=== PATIENT | male | born 1980 | race Caucasian/White ===

== ENCOUNTER 2020-09-29 19:32 | Emergency (ER) | payer OTHER ==
[~2020-09-29] VITALS: Ht 180.3 cm; Wt 117.0 kg
[2020-09-29 19:40] VITALS: BP 157/107
--- NOTE | 2020-09-29 19:43 | NUR ---
TO LOBBY A/W BED AMBULATORY
--- NOTE | 2020-09-29 20:03 | NUR ---
SHAGUFTA BROWN EVALUTING PATIENT
[2020-09-29] MEDS ORDERED: IBUP-2213 PO (20:10)
[2020-09-29] MEDS ORDERED: CEPH500C16 PO (20:10)
--- NOTE | 2020-09-29 22:25 | NUR ---
Patient discharged with v/s stable. Written and verbal after care instructions given and explained. Patient alert, oriented and verbalized understanding of instructions. Ambulatory with steady gait. All questions addressed prior to discharge. ID band removed. Patient advised to follow up with PMD. Rx of KEFLEX AND MOTRIN given. Patient educated on indication of medication including possible reaction and side effects. Opportunity to ask questions provided and answered.
== END 2020-09-29 22:25 | disposition home or self-care (01) ==
LOC: MED 19:32
DX: L60.0 Ingrowing nail (principal); R03.0 Elevated blood-pressure reading, without diagnosis of hypertension; Z79.899 Other long term (current) drug therapy
CPT/HCPCS: 99283

== ENCOUNTER 2023-04-06 21:13 | Emergency (ER) | payer OTHER ==
[~2023-04-06] VITALS: Ht 180.3 cm; Wt 120.2 kg
[~2023-04-06 21:13] MED LIST: CEPH500C16 PO; IBUP-2213 PO
[2023-04-06 21:40] VITALS: BP 134/90; PULSE 90; RESP 18; TEMP 97.6; O2SAT 97
[2023-04-06 22:48] LABS: FLU A ANTIGEN negative (NEGATIVE); FLU B ANTIGEN NEGATIVE (NEGATIVE)
[2023-04-07] MEDS ORDERED: AMOX-1230 PO (00:39)
[2023-04-07] MEDS ORDERED: BENZ200C4 PO (00:39)
[2023-04-07 00:45] VITALS: BP 134/90; PULSE 90; RESP 18; TEMP 97.6; O2SAT 97
== END 2023-04-07 00:45 | disposition home or self-care (01) ==
LOC: MED 21:13
DX: J20.9 Acute bronchitis, unspecified (principal); Z20.822 Contact with and (suspected) exposure to COVID-19; I10 Essential (primary) hypertension; Z79.899 Other long term (current) drug therapy
CPT/HCPCS: 87081; 99283